=== PATIENT | female | born 1950 | race Native Hawaiian/Other Pacific Islander ===

== ENCOUNTER 2022-05-09 10:50 | Outpatient (CLI) | payer OTHER | END 2022-05-09 19:32 | disposition home or self-care (01) | LOC: RAD 10:50 | PROVIDERS: ATTEND Internal Medicine | DX: M51.9 Unspecified thoracic, thoracolumbar and lumbosacral intervertebral disc disorder (principal); M79.89 Other specified soft tissue disorders ==

== ENCOUNTER 2022-05-24 15:33 | Outpatient (CLI) | payer OTHER ==
[2022-05-24 15:47] LABS: PLATELET COUNT 241 K/uL (152-353)
[2022-05-24 16:11] LABS: POTASSIUM 4.6 mmol/L (3.6-5.2)
== END 2022-05-24 19:02 | disposition home or self-care (01) ==
LOC: LAB 15:33
PROVIDERS: ATTEND Internal Medicine
DX: I10 Essential (primary) hypertension (principal)
CPT/HCPCS: 80053; 80061; 84439; 84443; 85027

== ENCOUNTER 2022-09-28 09:09 | Outpatient (CLI) | payer OTHER | END 2022-09-28 19:18 | disposition home or self-care (01) | LOC: MAMMO 09:09 | PROVIDERS: ATTEND Internal Medicine | DX: Z08 Encounter for follow-up examination after completed treatment for malignant neoplasm (principal); Z85.3 Personal history of malignant neoplasm of breast; M51.9 Unspecified thoracic, thoracolumbar and lumbosacral intervertebral disc disorder; N95.8 Other specified menopausal and perimenopausal disorders | CPT/HCPCS: G0279 ==